=== PATIENT | male | born 1980 | race Caucasian/White ===

== ENCOUNTER 2016-09-08 12:11 | Emergency (ER) | payer OTHER ==
--- NOTE | 2016-09-08 13:25 | XRAY Preliminary Report ---
Exam: XR Ankle 3 View RT IMPRESSION: 1. Normal alignment without evidence for acute fracture or dislocation of the ankle. No soft tissue s welling is seen. [facility] SITE ID: [id number]
--- NOTE | 2016-09-08 13:28 | XRAY Report ---
EXAM: RIGHT ANKLE RADIOGRAPHY EXAM DATE: 09/08/2016 01:10 PM. CLINICAL HISTORY: Pain. COMPARISON: 08/10/2014. TECHNIQUE: 3 views. FINDINGS: Bones: No acute fracture lines are seen. No abnormal osseous lesions. Corticated ossicle projecting m edial to the lateral malleolar tip appears unchanged compared to 2014 and could represent an accessor y ossicle or remote trauma. Joints: Normal. No effusion. No subluxations. The ankle mortise is normally aligned. Soft Tissues: Normal. No soft tissue swelling. IMPRESSION: 1. Normal alignment without evidence for acute fracture or dislocation of the ankle. No soft tissue s welling is seen. [facility] Referring Provider Line: [phone] SITE ID: [id number]
--- NOTE | 2016-09-08 13:34 | ED Physician Documentation ---
History of Present Illness - Stated complaint Stated Complaint: RT ANKLE INJ - Chief complaint Chief Complaint: Ext Problem - Additonal information Additional information: hx from pt rolled ankle in a hole in the yard lateral mall pain Review of Systems Musculoskeletal: reports: Pain with weight bearing PD PAST MEDICAL HISTORY - Past Medical History GI: GERD Psych: Anxiety Other Past Medical History: chronic neck pain - Past Surgical History Past Surgical History: Yes HEENT: Tonsil/Adenoidectomy - Present Medications Home Medications: Ambulatory Orders Medication Instructions Recorded Confirmed Omeprazole [PriLOSEC] 20 mg PO DAILY 01/10/14 09/08/16 Ranitidine HCl [Zantac] 150 tab PO DAILY 01/10/14 09/08/16 diltiaZEM [Cardizem] 60 mg PO TID 01/10/14 09/08/16 Esomeprazole Magnesium [Nexium] 20 mg PO DAILY 06/22/14 09/08/16 Amitriptyline [Elavil] 10 mg PO DAILY 09/08/16 09/08/16 - Allergies Allergies/Adverse Reactions: Allergies Allergy/AdvReac Type Severity Reaction Status Date / Time No Known Drug Allergies Allergy Verified 09/08/16 12:38 - Social History Does the pt smoke?: Yes Smoking Status: Current every day smoker Does the pt drink ETOH?: Yes Does the pt have substance abuse?: No - Immunizations Immunizations are current?: Yes - POLST Patient has POLST: No PD ED PE NORMAL - Vitals Vital signs reviewed: Yes - Extremities Extremities: Other (R ankle no edema or bruise, TTP lat mall and ST inferior to mall, no 5th MT pain, MSV intact) Results - Vitals Vitals: Vital Signs - 24 hr 09/08/16 12:18 Temperature 36.7 C Heart Rate 68 Respiratory 16 Rate Blood Pressure 128/81 H O2 Saturation 99 Oxygen O2 Source Room air - Rads (name of study) ankle Radiology: See rad report (neg) Departure - Departure Disposition: 01 Home, Self Care Clinical Impression: Ankle sprain Qualifiers: Encounter type: initial encounter Involved ligament of ankle: unspecified ligament Laterality: right Qualified Code(s): S93.401A - Sprain of unspecified ligament of right ankle, initial encounter Condition: Good Instructions: ED Sprain Ankle W X Ray Follow-Up: Williams Magana DO [Primary Care Provider] - Comments: The xray is fine - no fracture Wear the HAYDEN wrap, ice, and elevate to decrease the swelling Motrin as needed for the pain Crutches as needed until able to bear weight comfortably Follow up with your PMD for a recheck if not better in 2 weeks
[2016-09-08 13:51] VITALS: BP 121/73
== END 2016-09-08 13:51 | disposition home or self-care (01) ==
LOC: ED 12:11
DX: S93.401A Sprain of unspecified ligament of right ankle, initial encounter (principal); X50.1XXA Overexertion from prolonged static or awkward postures, initial encounter; Y93.89 Activity, other specified; Y92.096 Garden or yard of other non-institutional residence as the place of occurrence of the external cause; F17.200 Nicotine dependence, unspecified, uncomplicated
CPT/HCPCS: 99283

== ENCOUNTER 2017-04-09 12:17 | Emergency (ER) | payer OTHER ==
[2017-04-09] MEDS ORDERED: ALBUTEROL NEB 2.5 MG/3 ML INH STA (13:45)
--- NOTE | 2017-04-09 13:47 | ED Physician Documentation ---
PD HPI URI - Stated complaint Stated Complaint: FLU LIKE SX - Chief complaint Chief Complaint: Resp - History obtained from History obtained from: Patient, Family - History of Present Illness Timing - onset: Other (Sick for about 5 days, it started with body aches and fevers, later he developed a cough. He was getting better and was pretty much okay yesterday but the cough and chills got worse again today with mild shortness of breath and chest pressure. He has a history of childhood asthma. No recent travel.) Review of Systems Constitutional: reports: Chills, Fatigue Nose: denies: Rhinorrhea / runny nose Throat: denies: Sore throat Cardiac: reports: Chest pain / pressure. denies: Palpitations Respiratory: reports: Dyspnea, Cough PD PAST MEDICAL HISTORY - Past Medical History GI: GERD Psych: Anxiety - Past Surgical History Past Surgical History: Yes HEENT: Tonsil/Adenoidectomy - Present Medications Home Medications: Ambulatory Orders Medication Instructions Recorded Confirmed diltiaZEM [Cardizem] 60 mg PO TID 01/10/14 04/09/17 Esomeprazole Magnesium [Nexium] 20 mg PO DAILY 06/22/14 04/09/17 Amitriptyline [Elavil] 10 mg PO DAILY 09/08/16 04/09/17 Albuterol Sulfate [Proventil Hfa 1 - 2 puffs IH Q4H PRN #1 04/09/17 Inhaler] hfa.aer.ad guaiFENesin/CODEINE [Robitussin AC] 5 - 10 ml PO Q6H PRN #120 ml 04/09/17 - Allergies Allergies/Adverse Reactions: Allergies Allergy/AdvReac Type Severity Reaction Status Date / Time No Known Drug Allergies Allergy Verified 04/09/17 12:41 - Social History Does the pt smoke?: Yes Smoking Status: Current every day smoker Does the pt drink ETOH?: Yes Does the pt have substance abuse?: No - Immunizations Immunizations are current?: Yes - POLST Patient has POLST: No PD ED PE NORMAL - Vitals Vital signs reviewed: Yes - General General: Alert and oriented X 3, No acute distress - HEENT HEENT: PERRL, EOMI, Ears normal, Moist mucous membranes, Pharynx benign - Neck Neck: Supple, no meningeal sign, No bony TTP, No adenopathy - Cardiac Cardiac: RRR, No murmur - Respiratory Respiratory: No respiratory distress, Other (Squeaky wheezes and rhonchi throughout consistent with asthma or bronchitis, no real focal findings.) - Abdomen Abdomen: Non tender - Neuro Neuro: Alert and oriented X 3, Normal speech - Psych Psych: Normal mood, Normal affect Results - Vitals Vitals: Vital Signs - 24 hr 04/09/17 04/09/17 04/09/17 12:37 13:56 14:54 Temperature 36.9 C 37.0 C Heart Rate 71 96 75 Respiratory 16 20 18 Rate Blood Pressure 125/83 H 111/88 H O2 Saturation 98 98 Oxygen O2 Source Room air - EKG (time done) 1352 Rate: Rate (enter#) Rhythm: NSR (63) [place]: Normal Intervals: Normal [place] QRS: Normal Ischemia: ST elevation c/w repol (slight). No: ST elevation c/w ischemia Computer interpretation: Agree with computer - Rads (name of study) 2v chest Radiology: EMP read contemporaneously (normal) PD MEDICAL DECISION MAKING - ED course ED course: He has a biphasic illness that started with flulike symptoms so that is concerning for pneumonia, however his exam is more just wheezy and his chest x- ray is clear. He had significant improvement with albuterol and was prescribed this. Departure - Departure Disposition: 01 Home, Self Care Clinical Impression: Upper respiratory tract infection Qualifiers: URI type: unspecified viral URI Qualified Code(s): J06.9 - Acute upper respiratory infection, unspecified Condition: Good Record reviewed to determine appropriate education?: Yes Instructions: ED Bronchitis Asthmatic Prescriptions: Albuterol Sulfate [Proventil Hfa Inhaler] 1 - 2 puffs IH Q4H PRN #1 hfa.aer.ad PRN Reason: Cough guaiFENesin/CODEINE [Robitussin AC] 5 - 10 ml PO Q6H PRN #120 ml PRN Reason: Cough Comments: Your blood pressure was elevated today on check into the emergency department. This does not mean that you have hypertension, it is a common phenomenon to come to the emergency department and have elevated blood pressure. I recommend that you see your primary care physician within the week to have it rechecked when you are feeling better. Forms: Activity restrictions
--- NOTE | 2017-04-09 14:34 | XRAY Report ---
EXAM: CHEST RADIOGRAPHY EXAM DATE: 04/09/2017 02:16 PM. CLINICAL HISTORY: Cough. COMPARISON: None. TECHNIQUE: 2 views. FINDINGS: Lungs/Pleura: No focal consolidation evident. No pleural effusion. No pneumothorax. Normal volumes. Mediastinum: Heart and mediastinal contours are normal. Other: None. IMPRESSION: Normal 2-view chest radiography. [facility] Referring Provider Line: [phone] SITE ID: [id number]
[2017-04-09 14:54] VITALS: BP 111/88
== END 2017-04-09 15:10 | disposition home or self-care (01) ==
LOC: ED 12:17
DX: J06.9 Acute upper respiratory infection, unspecified (principal); R03.0 Elevated blood-pressure reading, without diagnosis of hypertension; F17.200 Nicotine dependence, unspecified, uncomplicated
CPT/HCPCS: 71046; 93005; 94640; 94664; 99283; 99284; J7613

== ENCOUNTER 2021-01-31 17:32 | Emergency (ER) | payer OTHER ==
--- NOTE | 2021-01-31 18:14 | ED Physician Documentation ---
History of Present Illness - Stated complaint Stated Complaint: POST SURG BLEED/TONSILS - Chief complaint Chief Complaint: Heent - Additonal information Additional information: 40-year-old male presents emergency department for evaluation of postoperative tonsil bleeding. He reports that about 20 years ago he had bilateral tonsillectomy. Over the last 20 years small amount of residual right tonsillar tissue remained and he was getting recurrent tonsil stones therefore on Monday, 25 January he underwent a right tonsillectomy in [facility]. He had been healing well postoperatively until This afternoon when he began bleeding. He has coughed up a fair amount of blood approximately 200 mils. Denies any pertinent past medical history. Takes no prescribed medications and he did take some ibuprofen today. Review of Systems Constitutional: reports: Reviewed and negative Eyes: reports: Reviewed and negative Nose: reports: Reviewed and negative Throat: denies: Swollen tonsils (Post tonsillectomy tonsillar bed bleeding) Cardiac: reports: Reviewed and negative Respiratory: reports: Reviewed and negative GI: reports: Reviewed and negative PD PAST MEDICAL HISTORY - Past Medical History GI: GERD Psych: Anxiety - Past Surgical History Past Surgical History: Yes HEENT: Tonsil/Adenoidectomy - Present Medications Home Medications: Ambulatory Orders Medication Instructions Recorded Confirmed diltiaZEM [Cardizem] 60 mg PO TID 01/10/14 04/09/17 Esomeprazole Magnesium [Nexium] 20 mg PO DAILY 06/22/14 04/09/17 Amitriptyline [Elavil] 10 mg PO DAILY 09/08/16 04/09/17 Albuterol Sulfate [Proventil Hfa 1 - 2 puffs IH Q4H PRN #1 04/09/17 Inhaler] hfa.aer.ad guaiFENesin/CODEINE [Robitussin AC] 5 - 10 ml PO Q6H PRN #120 ml 04/09/17 - Allergies Allergies/Adverse Reactions: Allergies Allergy/AdvReac Type Severity Reaction Status Date / Time No Known Drug Allergies Allergy Verified 04/09/17 12:41 - Social History Does the pt smoke?: Yes Smoking Status: Current every day smoker Does the pt drink ETOH?: Yes Does the pt have substance abuse?: No - Immunizations Immunizations are current?: Yes - POLST Patient has POLST: No PD ED PE EXPANDED - General General: Alert, No acute distress, Well developed/nourished - HEENT HEENT: No: Pharynx normal, Tonsillar exudate (Grossly abnormal right tonsillar bed with large amount of clot noted.) - Cardiac Cardiac: Regular Rate, Radial strong equal, Pedal strong equal, Cap refill < 2 sec - Respiratory Respiratory: Clear to ausultation ori. No: Distress, Labored - Abdomen Abdomen: Normal Bowel sounds. No: Tender to palpation - Extremities Extremities: Normal. No: Deformity, Tenderness - Neuro Neuro: Alert and Oriented X 3, CNII-XII intact - GCS Eye Opening: Spontaneous Motor: Obeys Commands Verbal: Oriented Total: 15 Results - Vitals Vitals: Vital Signs - 24 hr 01/31/21 01/31/21 17:56 18:01 Temperature 36.4 C L 36.5 C Heart Rate 88 88 Respiratory 18 18 Rate Blood Pressure 125/92 H 125/92 H O2 Saturation 96 96 Oxygen O2 Source Room air - Labs Labs: Laboratory Tests 01/31/21 01/31/21 01/31/21 18:18 18:18 18:18 WBC 6.2 RBC 5.24 Hgb 16.5 Hct 47.9 MCV 91.4 MCH 31.5 H MCHC 34.4 RDW 11.6 L Plt Count 228 MPV 9.7 Neut # (Auto) 3.6 Lymph # (Auto) 1.8 [place] # (Auto) 0.6 Eos # (Auto) 0.2 Baso # (Auto) 0.0 Absolute Nucleated RBC 0.00 Nucleated RBC % 0.0 PT 12.8 H INR 1.2 Sodium 136 Potassium 4.1 Chloride 97 L Carbon Dioxide 28 Anion Gap 11.0 BUN 17 Creatinine 1.0 Estimated GFR (MDRD) 84 L Glucose 87 Calcium 9.8 Total Bilirubin 1.0 AST 21 ALT 18 Alkaline Phosphatase 48 Total Protein 7.8 Albumin 4.6 Globulin 3.2 Albumin/Globulin Ratio 1.4 Lipase 19 L Nasal Adenovirus (PCR) Nasal B. parapertussis DNA (PCR) Nasal Coronavir 229E PCR Nasal Coronavir HKU1 PCR Nasal Coronavir NL63 PCR Nasal Coronavir OC43 PCR Nasal Enterovir/Rhinovir PCR Nasal Influenza B PCR Nasal Influenza A PCR Nasal Parainfluen 1 PCR Nasal Parainfluen 2 PCR Nasal Parainfluen 3 PCR Nasal Parainfluen 4 PCR Nasal RSV (PCR) Nasal B.pertussis DNA PCR Nasal C.pneumoniae (PCR) Raj Human Metapneumo PCR Nasal M.pneumoniae (PCR) Nasal SARS-CoV-2 (PCR) Blood Type Antibody Screen 01/31/21 01/31/21 18:18 18:30 WBC RBC Hgb Hct MCV MCH MCHC RDW Plt Count MPV Neut # (Auto) Lymph # (Auto) [place] # (Auto) Eos # (Auto) Baso # (Auto) Absolute Nucleated RBC Nucleated RBC % PT INR Sodium Potassium Chloride Carbon Dioxide Anion Gap BUN Creatinine Estimated GFR (MDRD) Glucose Calcium Total Bilirubin AST ALT Alkaline Phosphatase Total Protein Albumin Globulin Albumin/Globulin Ratio Lipase Nasal Adenovirus (PCR) NOT DETECTED Nasal B. parapertussis DNA (PCR) NOT DETECTED Nasal Coronavir 229E PCR NOT DETECTED Nasal Coronavir HKU1 PCR NOT DETECTED Nasal Coronavir NL63 PCR NOT DETECTED Nasal Coronavir OC43 PCR NOT DETECTED Nasal Enterovir/Rhinovir PCR NOT DETECTED Nasal Influenza B PCR NOT DETECTED Nasal Influenza A PCR NOT DETECTED Nasal Parainfluen 1 PCR NOT DETECTED Nasal Parainfluen 2 PCR NOT DETECTED Nasal Parainfluen 3 PCR NOT DETECTED Nasal Parainfluen 4 PCR NOT DETECTED Nasal RSV (PCR) NOT DETECTED Nasal B.pertussis DNA PCR NOT DETECTED Nasal C.pneumoniae (PCR) NOT DETECTED Raj Human Metapneumo PCR NOT DETECTED Nasal M.pneumoniae (PCR) NOT DETECTED Nasal SARS-CoV-2 (PCR) NOT DETECTED Blood Type A NEGATIVE Antibody Screen NEGATIVE PD MEDICAL DECISION MAKING - ED course Complexity details: reviewed results, re-evaluated patient, d/w patient ED course: 32-year-old male presents emergency department for evaluation of acute onset right tonsillectomy bleeding. This gentleman did have a tonsillectomy nearly 20 years ago and secondary to residual tissue growth as well as tonsil stones he underwent a right tonsillectomy last week (in [facility] 01/25/2021.) This afternoon he began having multiple episodes of bright red bleeding. He did call the ENT surgeon in [place] who recommended some ice but despite this he has had multiple episodes of bright red bleeding. He presents with a coffee cup that has large amount of bright red clot in it likely approximating about 200 mils. This gentleman has a large thrombus on his right tonsillar bed. He does have some mild but active/persistent bleeding at the bedside. I been in contact with Dr. Centeno on-call ENT for [facility] as well as [place]. We are attempting to find a local hospital that can accommodate him in transfer for emergent repair of this bleed. Patient will be given 500 mg of nebulized Tranzemic acid 1920: Will attempt nebulized lidocaine with epi to help control his bleeding. At this time he appears to have lost approximately 700-800 mls of blood. The previously noted clot on the right tonsillar bed has been disrupted and some active bleeding is noted though clot does appear to be trying to form. 1944: Given the delay of ground transport as well as the worsening tonsillar bed bleeding this patient will be flown via [facility] to [facility] emergency department. I have spoken with Dr. Pineda ED physician cycle consultant at [facility] he agrees to accept the patient in transfer. Dr. Centeno with ENT surgery is aware that the patient will be going to [facility]. In addition I have ordered 1 g of tranxemic acid to be administered IV. This should be an outpatient procedure. Appropriate COBRA paperwork completed Departure - Departure Disposition: 02 Transfer Acute Care Hosp Clinical Impression: Right tonsillar hemorrhage Condition: Serious Record reviewed to determine appropriate education?: Yes
[2021-01-31] MEDS ORDERED: TRANEXAMIC ACID 1,000 MG/10 ML VIAL NAS STA (18:19)
[2021-01-31 18:27] LABS: BASOPHILS % (AUTO) 0.6 %; EOSINOPHILS # (AUTO) 0.2 10^3/uL (0.0-0.7); EOSINOPHILS % (AUTO) 3.6 %; HCT - HEMATOCRIT 47.9 % (42.0-52.0); HGB - HEMOGLOBIN 16.5 g/dL (14.0-18.0); LYMPHOCYTES # (AUTO) 1.8 10^3/uL (1.5-3.5); LYMPHOCYTES % (AUTO) 28.8 %; MEAN CORPUSCULAR HEMOGLOBIN 31.5 pg (27.0-31.0); MEAN CORPUSCULAR HGB CONC 34.4 g/dL (32.0-36.0); MEAN CORPUSCULAR VOLUME 91.4 fL (80.0-94.0); MEAN PLATELET VOLUME 9.7 fL (7.4-11.4); MONOCYTES # (AUTO) 0.6 10^3/uL (0.0-1.0); MONOCYTES % (AUTO) 8.9 %; NEUTROPHILS # (AUTO) 3.6 10^3/uL (1.5-6.6); NEUTROPHILS % (AUTO) 57.9 %; PLT - PLATELET COUNT 228 10^3/uL (130-450); RED BLOOD COUNT 5.24 10^6/uL (4.70-6.10); RED CELL DISTRIBUTION WIDTH 11.6 % (12.0-15.0); WHITE BLOOD COUNT 6.2 x10^3/uL (4.8-10.8)
[2021-01-31 18:33] LABS: INR 1.2 (0.8-1.2); PT - PROTHROMBIN TIME 12.8 secs (9.9-12.6)
[2021-01-31 18:39] LABS: ALBUMIN 4.6 g/dL (3.2-5.5); ALBUMIN/GLOBULIN RATIO 1.4 (1.0-2.2); CALCIUM 9.8 mg/dL (8.5-10.3); POTASSIUM 4.1 mmol/L (3.5-5.0); TOTAL PROTEIN 7.8 g/dL (6.7-8.2)
[2021-01-31] MEDS ORDERED: LIDOCAINE 2%-EPI 1:100000 20 ML MDV SUBQ STA (19:22)
[2021-01-31 19:25] LABS: B. PARAPERTUSSIS- RESP PCR PAN NOT DETECTED; B. PERTUSSIS- RESP PCR PANEL NOT DETECTED; C. PNEUMONIAE- RESP PCR PANEL NOT DETECTED; CORONAVIRUS 229E-RESP PCR NOT DETECTED; CORONAVIRUS HKU1-RESP PCR NOT DETECTED; CORONAVIRUS NL63-RESP PCR NOT DETECTED; CORONAVIRUS OC43-RESP PCR NOT DETECTED; HUMAN METAPNEUMOVIRUS NOT DETECTED; INFLUENZA A- RESP PCR PANEL NOT DETECTED; INFLUENZA B - RESP PCR PANEL NOT DETECTED; M. PNEUMONIAE- RESP PCR PANEL NOT DETECTED; PARAINFLUENZA VIRUS 1 NOT DETECTED; PARAINFLUENZA VIRUS 2 NOT DETECTED; PARAINFLUENZA VIRUS 3 NOT DETECTED; PARAINFLUENZA VIRUS 4 NOT DETECTED; RHINOVIRUS/ENTEROVIRUS NOT DETECTED; RSV- RESP PCR PANEL NOT DETECTED; SARS-CoV-2 -RESP PCR PANEL NOT DETECTED
[2021-01-31] MEDS ORDERED: TRANEXAMIC ACID 1,000 MG in SODIUM CHLORIDE 0.9% 100ML 100 ML IV STA (19:52)
[2021-01-31] MEDS ORDERED: SODIUM CHLORIDE 0.9% 1,000 ML IV STA (19:54)
[2021-01-31] MEDS ORDERED: TRANEXAMIC ACID 1,000 MG/10 ML VIAL ONE (20:00)
[2021-01-31 20:05] VITALS: BP 118/87
== END 2021-01-31 20:10 | disposition short-term general hospital (02) ==
LOC: ED 17:32
DX: K91.841 Postprocedural hemorrhage of a digestive system organ or structure following other procedure (principal); Y83.8 Other surgical procedures as the cause of abnormal reaction of the patient, or of later complication, without mention of misadventure at the time of the procedure; F17.200 Nicotine dependence, unspecified, uncomplicated; Z20.822 Contact with and (suspected) exposure to COVID-19
CPT/HCPCS: 0202U; 36415; 80053; 83690; 85025; 85610; 86850; 86900; 86901; 96374; 99284